=== PATIENT | female | born 2000 | race Caucasian/White ===

== ENCOUNTER 2020-09-11 12:03 | Emergency (ER) | payer OTHER ==
[2020-09-11 12:58] LABS: BASOPHILS % (AUTO) 0.2 %; EOSINOPHILS % (AUTO) 0.2 %; HCT - HEMATOCRIT 39.7 % (37.0-47.0); HGB - HEMOGLOBIN 13.4 g/dL (12.0-16.0); LYMPHOCYTES # (AUTO) 1.6 10^3/uL (1.5-3.5); LYMPHOCYTES % (AUTO) 18.8 %; MEAN CORPUSCULAR HEMOGLOBIN 29.4 pg (27.0-31.0); MEAN CORPUSCULAR HGB CONC 33.8 g/dL (32.0-36.0); MEAN CORPUSCULAR VOLUME 87.1 fL (81.0-99.0); MEAN PLATELET VOLUME 9.3 fL (7.9-10.8); MONOCYTES # (AUTO) 0.6 10^3/uL (0.0-1.0); MONOCYTES % (AUTO) 7.4 %; NEUTROPHILS # (AUTO) 6.2 10^3/uL (1.5-6.6); PLT - PLATELET COUNT 260 10^3/uL (130-450); RED BLOOD COUNT 4.56 10^6/uL (4.20-5.40); RED CELL DISTRIBUTION WIDTH 11.9 % (12.0-15.0); WHITE BLOOD COUNT 8.5 x10^3/uL (4.8-10.8)
[2020-09-11 13:02] LABS: ALBUMIN 4.9 g/dL (3.2-5.5); ALBUMIN/GLOBULIN RATIO 1.6 (1.0-2.2); ALKALINE PHOSPHATASE 61 IU/L (42-121); ALT ALANINE AMINOTRANSFERASE 26 IU/L (10-60); AST ASPARTATE AMINOTRANSFERASE 20 IU/L (10-42); BILIRUBIN,TOTAL 0.4 mg/dL (0.2-1.0); BUN - BLOOD UREA NITROGEN 19 mg/dL (6-20); CALCIUM 10.3 mg/dL (8.5-10.3); CARBON DIOXIDE - CO2 22 mmol/L (21-32); CHLORIDE 107 mmol/L (101-111); CREATININE 0.8 mg/dL (0.4-1.0); ETOH - ETHANOL < 5.0 mg/dL; GFR - MDRD 91 (>89); GLUCOSE 93 mg/dL (70-100); LIPASE 23 U/L (22-51); POTASSIUM 3.9 mmol/L (3.5-5.0); SODIUM 142 mmol/L (135-145)
--- NOTE | 2020-09-11 13:15 | ED Physician Documentation ---
PD HPI MHE - Stated complaint Stated Complaint: SI/MHE - Chief complaint Chief Complaint: MHE - History obtained from History obtained from: Patient - Additional information Additional information: Patient comes emergency department for chief complaint of feeling suicidal. She states that it has been "a lot of things building up over a long time", and is not able to clarify what exactly got her to the point of feeling suicidal today. However, she states that it feels like "all of this is not real" and that there is no reason for her existence. Patient states she drove herself to the [employer] [place] and that she stood looking over the edge for a long time until somebody asked if she was okay. Patient states that bystanders called EMS, who brought her in. The patient also did perform some superficial cutting on her left arm earlier today. She denies using any drugs or alcohol. The patient does have a therapist, but she states that therapy does not seem helpful because she does not like her therapist. She is not on any medications. The patient states she has made prior suicidal attempts by way of self-mutilation, but has not been admitted for inpatient psychiatric care. Patient states she has had depression and anxiety since childhood. She does have some support in the way of her mother and a friend, but she states that they do not understand what is going on with her and are not able to be very helpful. Patient states she currently still feels suicidal and feels that she would attempt suicide again if she were released. No other complaints at this time. Review of Systems Ten Systems: 10 systems reviewed and negative Constitutional: reports: Reviewed and negative Eyes: reports: Reviewed and negative Ears: reports: Reviewed and negative Nose: reports: Reviewed and negative Throat: reports: Reviewed and negative Cardiac: reports: Reviewed and negative Respiratory: reports: Reviewed and negative GI: reports: Reviewed and negative : reports: Reviewed and negative Skin: reports: Reviewed and negative Musculoskeletal: reports: Reviewed and negative Neurologic: reports: Reviewed and negative Psychiatric: reports: Depressed, Suicidal Endocrine: reports: Reviewed and negative Immunocompromised: reports: Reviewed and negative PD PAST MEDICAL HISTORY - Allergies Allergies/Adverse Reactions: Allergies Allergy/AdvReac Type Severity Reaction Status Date / Time No Known Drug Allergies Allergy Verified 09/11/20 13:02 PD ED PE NORMAL - Vitals Vital signs reviewed: Yes - General General: Alert and oriented X 3, No acute distress, Well developed/nourished - HEENT HEENT: Atraumatic, PERRL, EOMI, Moist mucous membranes - Neck Neck: Supple, no meningeal sign - Cardiac Cardiac: RRR, No murmur - Respiratory Respiratory: No respiratory distress, Clear bilaterally - Abdomen Abdomen: Soft, Non tender, Non distended - Derm Derm: Warm and dry, Other (Multiple linear abrasions over the flexor aspect of the patient's left forearm. No full-thickness lacerations.) - Extremities Extremities: No deformity, No edema, No calf tenderness / cord - Neuro Neuro: Alert and oriented X 3, disaster recovery specialist 2-12 intact, Normal speech, Other (Grossly intact otherwise.) - Psych Psych: Other (Depressed mood, flat affect. Patient does answer questions appropriately and cooperate with exam.) Results - Vitals Vitals: Vital Signs - 24 hr 09/11/20 12:07 Temperature 37.4 C Heart Rate 88 Respiratory 16 Rate Blood Pressure 123/78 O2 Saturation 100 Oxygen O2 Source Room air - Labs Labs: Laboratory Tests 09/11/20 09/11/20 09/11/20 12:42 12:42 14:27 WBC 8.5 RBC 4.56 Hgb 13.4 Hct 39.7 MCV 87.1 MCH 29.4 MCHC 33.8 RDW 11.9 L Plt Count 260 MPV 9.3 Neut # (Auto) 6.2 Lymph # (Auto) 1.6 [place] # (Auto) 0.6 Eos # (Auto) 0.0 Baso # (Auto) 0.0 Absolute Nucleated RBC 0.00 Nucleated RBC % 0.0 Sodium 142 Potassium 3.9 Chloride 107 Carbon Dioxide 22 Anion Gap 13.0 BUN 19 Creatinine 0.8 Estimated GFR (MDRD) 91 Glucose 93 Calcium 10.3 Total Bilirubin 0.4 AST 20 ALT 26 Alkaline Phosphatase 61 Total Protein 8.0 Albumin 4.9 Globulin 3.1 Albumin/Globulin Ratio 1.6 Lipase 23 Urine HCG, Qual NEGATIVE Ethyl Alcohol < 5.0 PD MEDICAL DECISION MAKING - ED course Complexity details: reviewed results, re-evaluated patient, considered differential, d/w patient ED course: The patient was worked up with labs for medical clearance for mental health evaluation, and was seen by social scientist in the emergency department. At this point in time, social scientist is attempting to arrange placement for the patient, possibly at [facility]. To this end, respiratory PCR was obtained for Covid clearance for impending psychiatric transfer. Patient was signed out to oncoming provider pending final disposition. Departure - Departure Clinical Impression: Suicidal ideation Depression Qualifiers: Depression Type: major depressive disorder Major depression recurrence: recurrent Active/Remission status: currently active Major depression episode severity: severe Psychotic features: without psychotic features Qualified Code(s): F33.2 - Major depressive disorder, recurrent severe without psychotic features
[2020-09-11 14:34] LABS: MUDS CUTOFF CONCENTRATIONS CUTOFF CONC BELOW:
[2020-09-11 14:45] LABS: HCG UR QUAL NEGATIVE
[2020-09-11 14:54] LABS: AMPHETAMINE SCREEN,URINE NEGATIVE (NEGATIVE); BARBITURATE SCREEN,UR NEGATIVE (NEGATIVE); BENZODIAZEPINES SCREEN, URINE NEGATIVE (NEGATIVE); COCAINE SCREEN URINE NEGATIVE (NEGATIVE); METHADONE SCREEN, URINE NEGATIVE (NEGATIVE); METHAMPHETAMINES SCREEN, URINE NEGATIVE (NEGATIVE); OPIATE SCREEN, URINE NEGATIVE (NEGATIVE); OXYCODONE SCREEN, URINE NEGATIVE (NEGATIVE); PROPOXYPHENE SCREEN, URINE NEGATIVE (NEGATIVE); THC CANNABINOID SCREEN, URINE NEGATIVE (NEGATIVE); TRICYCLIC ANTIDEPRESSANT,URINE NEGATIVE (NEGATIVE)
[2020-09-11 15:17] LABS: B. PARAPERTUSSIS- RESP PCR PAN NOT DETECTED; B. PERTUSSIS- RESP PCR PANEL NOT DETECTED; C. PNEUMONIAE- RESP PCR PANEL NOT DETECTED; CORONAVIRUS 229E-RESP PCR NOT DETECTED; CORONAVIRUS HKU1-RESP PCR NOT DETECTED; CORONAVIRUS NL63-RESP PCR NOT DETECTED; CORONAVIRUS OC43-RESP PCR NOT DETECTED; HUMAN METAPNEUMOVIRUS NOT DETECTED; INFLUENZA A- RESP PCR PANEL NOT DETECTED; INFLUENZA B - RESP PCR PANEL NOT DETECTED; M. PNEUMONIAE- RESP PCR PANEL NOT DETECTED; PARAINFLUENZA VIRUS 1 NOT DETECTED; PARAINFLUENZA VIRUS 2 NOT DETECTED; PARAINFLUENZA VIRUS 3 NOT DETECTED; PARAINFLUENZA VIRUS 4 NOT DETECTED; RHINOVIRUS/ENTEROVIRUS NOT DETECTED; RSV- RESP PCR PANEL NOT DETECTED; SARS-CoV-2 -RESP PCR PANEL NOT DETECTED
--- NOTE | 2020-09-11 16:39 | ED Physician Documentation ---
ED Addendum - Addendum Addendum: 09/11/20 16:[address] Key at shift change. Patient was accepted to [facility] by Dr. Henry Gonzalez and cobras were completed. Patient is stable for transport for psychiatric evaluation and treatment. Disposition: Transfer to [facility] Condition: Stable
[2020-09-11 18:08] VITALS: BP 137/78
== END 2020-09-11 18:07 ==
LOC: ED 12:03
DX: R45.851 Suicidal ideations (principal); F33.2 Major depressive disorder, recurrent severe without psychotic features; Z20.822 Contact with and (suspected) exposure to COVID-19
CPT/HCPCS: 0202U; 36415; 80053; 80306; 80320; 81025; 83690; 85025; 99285